=== PATIENT | male | born 1950 | race Caucasian/White ===

== ENCOUNTER 2016-02-26 14:59 | Emergency (ER) | payer MEDICARE ==
[~2016-02-26] VITALS: Ht 203.2 cm; Wt 120.3 kg
[2016-02-26] VITALS (8 sets, daily range): BP systolic 113–133; BP diastolic 75–93; PULSE 69–86; RESP 18–20; TEMP 98; O2SAT 95–98
[~2016-02-26 14:59] MED LIST: DIGO0.12 PO; DILT-4 PO; ESCI10TA PO; GLUC1000 PO; HYDR-3580 PO; INSU1INJ5 SQ; LACTCAP7 PO; LOSA50TA PO; OMEP20TA PO; PRAV20 PO; RANI150 PO; WARF1TAB PO
[2016-02-26] MEDS ORDERED: SODIUM CHLORIDE 0.9% FLUSH 5 ML FLUSH IVF PRN (15:15)
[2016-02-26] MEDS ORDERED: NITROGLYCERIN 0.4 MG SL 25 TABS/BTL SL ONE (15:15)
--- NOTE | 2016-02-26 15:19 | PD ---
HPI Chief Complaint: Chest Pain Time Seen by Provider: 15:01 Travel History International Travel<30 days: No Contact w/Intl Traveler<30days: No Traveled to known affect area: No History of Present Illness HPI The patient is a 65-year-old male who presents emergency department for chest pain. The patient notes a 2 month history of left-sided chest pain which is been intermittent, progressively worsening over the last several weeks. The chest pain is on the left side, described as heaviness, nonradiating , and not associated with any shortness of breath. He did have 1 episode of nausea 3 days ago, but denies any vomiting. He also had one episode of diarrhea earlier today. The patient denies any shortness of breath or exertional symptoms. The patient states that he walks a bridge at night, has had no increasing chest pain with ambulation and denies any shortness of breath with exertion. 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 The patient currently sees Dr. Peña as his flame degreaser. The patient called his flame degreaser earlier today and was referred to the emergency department for further management. Patient does have a history of hypertension, takes antihyperlipidemic medication , but denies any history of elevated cholesterol. He denies any current tobacco use, however, does have a history of diabetes which is treated with metformin and insulin. The patient states his last stress test was approximately one year ago. He denies any history of DE or previous stent placement. PFSH Past Medical History Hx Anticoagulant Therapy: Yes (COUMADIN) Blood Disorders: No Heart Rhythm Problems: Yes Cancer: Yes (PROSTATE radiation with seeds 5 years ago) Cardiovascular Problems: Yes (PM/DEFIB PLACED 9 DAYS AGO) High Cholesterol: Yes Chest Pain: No Diabetes: Yes (TYPE 2) Diminished Hearing: No Endocrine: Yes Gastrointestinal Disorders: No GERD: Yes Glaucoma: No Genitourinary: No Hepatitis: No Hiatal Hernia: No Hypertension: Yes Immune Disorder: No Musculoskeletal: Yes Neurologic: No Psychiatric: Yes Reproductive: No Respiratory: Yes (SLEEP APNEA, H/O PE) Integumentary: No Sleep Apnea: Yes Thyroid Disease: No Past Surgical History Cardiac Surgery: Yes (PM/DEFIB PLACED 9 DAYS AGO) Thoracic Surgery: No Social History Alcohol Use: Yes (RARELY) Tobacco Use: No (FORMER) Substance Use: No Allergies-Medications (Allergen,Severity, Reaction): Coded Allergies: No Known Allergies (Unverified , 02/26/16) Reported Meds & Prescriptions Reported Meds & Active Scripts Active Reported Lortab (Hydrocodone-Acetaminophen) 7.5-325 Mg Tab 1 Tab PO Q8HR PRN Levemir Inj (Insulin Detemir) 1,000 unit/ 10 ML Vial 20 Units SQ DAILY Do not mix with any other Insulin. Metformin (Metformin HCl) 1,000 Mg Tab 1,000 Mg PO BIDPC With meals Warfarin 10 Mg Tab 13 Mg PO DAILY Omeprazole 20 Mg Tab 20 Mg PO DAILY Losartan (Losartan Potassium) 100 Mg Tab 100 Mg PO DAILY Pravastatin 20 Mg Tab 20 Mg PO DAILY Escitalopram (Escitalopram Oxalate) 10 Mg Tab 10 Mg PO DAILY Review of Systems Except as stated in HPI: all other systems reviewed are Neg General / Constitutional: No: Fever Cardiovascular: Positive: Chest Pain or Discomfort, No: Diaphoresis, Dyspnea on exertion Respiratory: Positive: Cough (clear), No: Shortness of Breath Gastrointestinal: Positive: Nausea (one episode of nausea 3 days ago), No: Vomiting, Diarrhea Musculoskeletal: Positive: Other (chronic leg 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 SKIN: Warm and dry. Multiple tattoos noted. HEAD: Atraumatic. Normocephalic. EYES: Pupils equal and round. No scleral icterus. No injection or drainage. ENT: No nasal bleeding or discharge. Mucous membranes pink and moist. NECK: Trachea midline. No JVD. CARDIOVASCULAR: Regular rate and rhythm. No murmur appreciated. Pacemaker left chest wall. Nipple ring on the right. RESPIRATORY: No accessory muscle use. Clear to auscultation. Breath sounds equal bilaterally. GASTROINTESTINAL: Abdomen soft, non-tender, nondistended. No rebound tenderness. MUSCULOSKELETAL: No obvious deformities. No clubbing. No cyanosis. No edema. Dressing in place left lower extremity over chronic wound. NEUROLOGICAL: Awake and alert. No obvious cranial nerve deficits. Motor grossly within normal limits. Normal speech. PSYCHIATRIC: Appropriate mood and affect; insight and judgment normal. Data Data Last Documented VS Vital Signs Date Time Temp Pulse Resp B/P Pulse Ox O2 Delivery O2 Flow Rate FiO2 02/26/16 17:39 69 20 120/82 95 Room Air 02/26/16 15:08 98.0 Orders Ckmb (Isoenzyme) Profile (02/26/16 15:13) Complete Blood Count With Diff (02/26/16 15:13) Comprehensive Metabolic Panel (02/26/16 15:13) Magnesium (Mg) (02/26/16 15:13) Prothrombin Time / Inr (Pt) (02/26/16 15:13) Act Partial Throm Time (Ptt) (02/26/16 15:13) Troponin I (02/26/16 15:13) Lipase (02/26/16 15:13) Chest, Single Ap (02/26/16 15:13) Ecg Monitoring (02/26/16 15:13) Bilateral Bp Monitoring (02/26/16 15:13) Iv Access Insert/Monitor (02/26/16 15:13) Oximetry (02/26/16 15:13) Oxygen Administration (02/26/16 15:13) Sodium Chloride 0.9% Flush (Ns Flush) (02/26/16 15:15) Nitroglycerin Sl (Nitrostat Sl) (02/26/16 15:15) Digoxin (02/26/16 15:00) Troponin I (02/26/16 18:00) Electrocardiogram (02/26/16 14:54) Labs Laboratory Tests Test 02/26/16 02/26/16 15:00 18:15 White Blood Count 5.3 TH/MM3 Red Blood Count 4.59 MIL/MM3 Hemoglobin 13.6 GM/DL Hematocrit 41.2 % Mean Corpuscular Volume 89.6 FL Mean Corpuscular Hemoglobin 29.6 PG Mean Corpuscular Hemoglobin 33.1 % Concent Red Cell Distribution Width 13.8 % Platelet Count 197 TH/MM3 Mean Platelet Volume 7.8 FL Neutrophils (%) (Auto) 62.7 % Lymphocytes (%) (Auto) 24.2 % Monocytes (%) (Auto) 8.3 % Eosinophils (%) (Auto) 4.3 % Basophils (%) (Auto) 0.5 % Neutrophils # (Auto) 3.4 TH/MM3 Lymphocytes # (Auto) 1.3 TH/MM3 Monocytes # (Auto) 0.4 TH/MM3 Eosinophils # (Auto) 0.2 TH/MM3 Basophils # (Auto) 0.0 TH/MM3 CBC Comment DIFF FINAL Differential Comment Prothrombin Time 27.5 SEC Prothromb Time International 2.4 RATIO Ratio Activated Partial 39.0 SEC Thromboplast Time Sodium Level 142 MEQ/L Potassium Level 4.0 MEQ/L Chloride Level 108 MEQ/L Carbon Dioxide Level 25.3 MEQ/L Anion Gap 9 MEQ/L Blood Urea Nitrogen 16 MG/DL Creatinine 0.81 MG/DL Estimat Glomerular Filtration 95 ML/MIN Rate Random Glucose 98 MG/DL Calcium Level 8.9 MG/DL Magnesium Level 1.8 MG/DL Total Bilirubin 0.7 MG/DL Aspartate Amino Transf 18 U/L (AST/SGOT) Alanine Aminotransferase 23 U/L (ALT/SGPT) Alkaline Phosphatase 71 U/L Total Creatine Kinase 74 U/L Troponin I LESS THAN 0.02 LESS THAN 0.02 NG/ML NG/ML Total Protein 7.5 GM/DL Albumin 3.5 GM/DL Lipase 120 U/L Digoxin Level LESS THAN 0.1 NG/ML MDM Medical Decision Making Medical Screen Exam Complete: Yes Emergency Medical Condition: Yes Medical Record Reviewed: Yes Interpretation(s) EKG reveals a regular rhythm, rate 80. Intraventricular conduction defect,skin changes compared to previous EKG except inverted T-wave in lead 1 has resolved. Differential Diagnosis Differential diagnosis includes acute coronary syndrome, pulmonary embolism, pleural effusion, pneumothorax, GERD, esophageal spasm. Narrative Course IV was established, labs were drawn and sent, and the patient was placed on cardiac telemetry monitoring and continuous pulse oximetry monitoring. EKG was ordered and interpreted, there is no significant changes when compared to previous EKG. [facility] was called to interrogate patient's pacemaker. Chest x- ray was obtained. The patient was not administered aspirin, is on Coumadin, therefore, PTT/INR and digoxin level were sent to lab. Digoxin level was less than 0.1, patient states he no longer takes digoxin after ablation and pacemaker placement. Initial troponin was negative. I discussed the patient with Dr. Peña who agrees with second troponin and then outpatient follow- up in the office tomorrow, he states previous ischemic workups have been negative. [facility] did evaluate the patient's pacemaker, was working normally, no abnormalities noted. Therefore, second troponin was ordered as a 3 hour level, 6 PM. The second troponin was negative. The patient will be provided a copy of labs and chest x-ray results at discharge. He is advised to follow-up with Dr. Peña tomorrow. Diagnosis Primary Impression: Atypical chest pain Patient Instructions: General Instructions Additional Instructions: Please provide a patient a copy of labs, EKG, and chest x-ray discharge. Follow -up with Dr. Peña tomorrow. Return sooner if symptoms worsen or progress. Med/Other Pt SpecificInfo: No Change to Meds Disposition: 01 DISCHARGE HOME Condition: Stable Aung Welsh MD Feb 26, 2016 15:19
[2016-02-26 15:29] LABS: AUTOMATED NEUTROPHIL # 3.4 TH/MM3 (1.8-7.7); BASOPHIL % 0.5 % (0.0-2.0); EOSINOPHIL # 0.2 TH/MM3 (0-0.4); EOSINOPHIL % 4.3 % (0.0-4.0); HEMATOCRIT 41.2 % (39.0-51.0); HEMO FLAGS DIFF FINAL; LYMPH % 24.2 % (9.0-44.0); LYMPHOCYTE # 1.3 TH/MM3 (1.0-4.8); MEAN CELL VOLUME 89.6 FL (80.0-100.0); MEAN CORPUSCULAR HEMOGLOBIN 29.6 PG (27.0-34.0); MEAN CORPUSCULAR HGB CONC 33.1 % (32.0-36.0); MONO % 8.3 % (0.0-8.0); NEUT % 62.7 % (16.0-70.0); PLATELET COUNT 197 TH/MM3 (150-450); RED BLOOD COUNT 4.59 MIL/MM3 (4.50-5.90); RED CELL DISTRIBUTION WIDTH 13.8 % (11.6-17.2); WHITE BLOOD COUNT 5.3 TH/MM3 (4.0-11.0)
[2016-02-26 15:38] LABS: CHLORIDE 108 MEQ/L (98-107); SODIUM (NA) 142 MEQ/L (136-145)
[2016-02-26 15:41] LABS: ANION GAP 9 MEQ/L (5-15); BICARBONATE 25.3 MEQ/L (21.0-32.0); BLOOD UREA NITROGEN 16 MG/DL (7-18); MAGNESIUM 1.8 MG/DL (1.5-2.5)
[2016-02-26] MEDS ORDERED: ESCI10TA PO (15:41)
[2016-02-26] MEDS ORDERED: PRAV20TA2 PO (15:41)
[2016-02-26] MEDS ORDERED: METF1000 PO (15:41)
[2016-02-26] MEDS ORDERED: HYDR-3534 PO (15:41)
[2016-02-26] MEDS ORDERED: WARF-22 PO (15:41)
[2016-02-26] MEDS ORDERED: OMEP20TA PO (15:41)
[2016-02-26] MEDS ORDERED: LEVEMIR SQ (15:41)
[2016-02-26] MEDS ORDERED: LOSA100T PO (15:41)
[2016-02-26 15:43] LABS: INTERNATIONAL NORMALIZED RATIO 2.4 RATIO; PROTHROMBIN TIME - PATIENT 27.5 SEC (9.8-11.6)
[2016-02-26 15:44] LABS: ALT (GPT) 23 U/L (12-78); AST (GOT) 18 U/L (15-37); GLOMERULAR FILTRATION RATE 95 ML/MIN (>89)
[2016-02-26 15:46] LABS: TOTAL BILIRUBIN ADULT 0.7 MG/DL (0.2-1.0)
[2016-02-26 15:47] LABS: ALKALINE PHOSPHATASE 71 U/L (45-117)
--- NOTE | 2016-02-26 15:56 | RADHPO ---
EXAM DATE/TIME: 02/26/2016 15:24 [facility] COMPARISON: CHEST SINGLE AP, June 12, 2015, 11:29. INDICATIONS : Patient states chest pains. MEDICAL HISTORY : Hypertension. Hypercholesterolemia. Diabetes mellitus type II. Gastroesophageal reflux disease SURGICAL HISTORY : Pacemaker. Cardiac ablasions x4 ENCOUNTER: Initial ACUITY: 2 days PAIN SCORE: 6/10 LOCATION: Bilateral chest FINDINGS: A single view of the chest demonstrates the lungs to be symmetrically aerated without evidence of mas s, infiltrate or effusion. The cardiomediastinal contours are unremarkable. Osseous structures are intact. CONCLUSION: 1. No acute cardiopulmonary findings. Transvenous pacer is in good position. Mark Saenz MD on February 26, 2016 at 15:54 Board Certified Radiologist. This report was verified electronically.
[2016-02-26 15:57] LABS: CREATINE KINASE 74 U/L (39-308)
[2016-02-26 16:23] LABS: DIGOXIN LESS THAN 0.1 NG/ML (0.8-2.0)
--- NOTE | 2016-02-27 14:36 | EKG ---
Date Performed: 02/26/2016 Time Performed: 14:54:04 PTAGE: 65 years EKG: Possible ectopic atrial rhythm. Left axis deviation Extensive infarct - age undetermined Ab normal ECG PREVIOUS TRACING : 06/12/2015 11.18 Since previous tracing, no significant change noted DOCTOR: Lissa Chacon Interpretating Date/Time 02/27/2016 14:27:55
== END 2016-02-26 19:20 | disposition home or self-care (01) ==
LOC: PHED 14:59
DX: Z79.01 Long term (current) use of anticoagulants (principal); E78.00 Pure hypercholesterolemia, unspecified; E11.9 Type 2 diabetes mellitus without complications; I10 Essential (primary) hypertension; Z79.4 Long term (current) use of insulin; Z87.891 Personal history of nicotine dependence; R07.89 Other chest pain
CPT/HCPCS: 71010; 80053; 80162; 82550; 83690; 83735; 84484; 85025; 85610; 85730; 93005